=== PATIENT | female | born 1985 | race American Indian/Alaskan Native ===

== ENCOUNTER 2016-06-15 15:54 | Outpatient (CLI) | payer MEDICAID ==
--- NOTE | 2016-06-16 14:00 | Magnetic Resonance Report ---
MRI LUMBAR SPINE WITHOUT CONTRAST: 06/15/16 CLINICAL: Low back pain. TECHNIQUE: Sagittal and axial T1 and T2, and sagittal STIR sequences on a 1.5 Stephanie magnet. FINDINGS: Normal vertebral body height, alignment and disc spaces. Normal marrow signal is normal disc signal. The conus medullaris is normal and terminates at L1. L1-2: Intact. L2-3: Intact. L3-4: Intact. L4-5: Intact. L5-S1: Intact. IMPRESSION: Normal study.
== END 2016-06-15 15:55 | disposition home or self-care (01) ==
LOC: MRI 15:54
PROVIDERS: ATTEND Physical Medicine & Rehabilitation
DX: M47.896 Other spondylosis, lumbar region (principal)
CPT/HCPCS: 72148

== ENCOUNTER 2016-06-17 18:49 | Emergency (ER) | payer MEDICAID ==
[2016-06-17 19:29] VITALS: BP 146/83
--- NOTE | 2016-06-17 20:05 | Emergency Department Report ---
Chief Complaint: Skin/Abscess/Foreign Body Stated Complaint: S/P LEFT ARM SURGERY/BURNING/NUMB Time Seen by Provider: 06/17/16 19:57 - HPI History of Present Illness: 30y/o female complain of had a surgery on saturday. had surgery of the left armpit.pt state she do not know the name of the surgery .pt state she was not suppose to put deodorant on armpit but accident place deodorant and notice edema and red streak moving upward arm.pt state she has post op appointment in the am .denies any pain or discomfort at present . - ROS Review of Systems: per HPI - Exam Vital Signs: Vital Signs 06/17/16 19:21 Temperature 98.8 F Pulse Rate 93 H Respiratory 18 Rate Blood Pressure 146/83 O2 Sat by Pulse 98 Oximetry Physical Exam: GENERAL: The patient is well-developed and well-nourished. Patient is in NAD. HENT: Normocephalic. Atraumatic. Patient has moist mucous membranes. Throat: No erythema, swelling or exudates. Ears:Tympanic membranes pearly loyola ,intact , and free of exudate and erythema . EYES: Extraocular motions are intact, PERRL NECK: Supple. No meningitic signs are noted. There is no adenopathy noted. CHEST/LUNGS: Clear to auscultation bilaterally. No wheezing, rales or rhonchi noted. There is no respiratory distress noted. HEART/CARDIOVASCULAR: Regular rate and rhythm. Normal S1 S2. No murmurs, rubs , clicks, or gallops. ABDOMEN: Abdomen is soft, nontender.. Bowel sounds normoactive. There is no abdominal distention. Negative rebound tenderness. : Deferred. SKIN: rash note upper arm . mild edema noted to the left armpit . no diaphoresis NEURO: The patient is A&Ox3. The patient has no focal neurologic deficits. MUSCULOSKELETAL: There is no tenderness or deformity. There is no limitation range of motion. posture erect.Spine aligned,no deformities. PSYCH: Pt has appropriate mood and affect. MSE screening note: Focused history and physical exam performed. Due to findings the following was ordered: ED Disposition for MSE Condition: Stable
--- NOTE | 2016-06-18 19:11 | ED Elopement Review ---
ED Pt Elopement review - Call Back decision Pt Call Back Decision: Pt to F/U with PMD
== END 2016-06-17 22:45 | disposition left against medical advice (07) ==
LOC: ED 18:49
DX: R60.0 Localized edema (principal); R21 Rash and other nonspecific skin eruption; Z53.21 Procedure and treatment not carried out due to patient leaving prior to being seen by health care provider

== ENCOUNTER 2016-08-29 10:28 | Inpatient (IN) | payer MEDICAID ==
[2016-08-27 13:53] LABS: Hematocrit 35.4 % (30.3-42.9); Hemoglobin 11.3 gm/dl (10.1-14.3); Mean Corpuscular HGB Conc 32 % (30-34); Mean Corpuscular Hemoglobin 27 pg (28-32); Mean Corpuscular Volume 83 fl (79-97); Platelet Count 295 K/mm3 (140-440); Red Blood Count 4.27 M/mm3 (3.65-5.03); Red Cell Distribution Width 16.3 % (13.2-15.2); White Blood Count 4.9 K/mm3 (4.5-11.0)
--- NOTE | 2016-08-27 14:01 | Anesthesia Consultation ---
Anesthesia Consult and Med Hx Date of service: 08/27/16 - Airway Anesthetic Teeth Evaluation: Poor (gaps), Caps ROM Head & Neck: Adequate Mental/Hyoid Distance: Adequate Mallampati Class: Class II Intubation Access Assessment: Probably Good - Pulmonary Exam CTA: Yes - Cardiac Exam Cardiac Exam: RRR - Pre-Operative Health Status ASA Pre-Surgery Classification: ASA2 Proposed Anesthetic Plan: General - Pulmonary Hx Smoking: Yes (CIGARETTES 1/2 PPD x 9 YRS) Hx Asthma: No - Cardiovascular System Hx Hypertension: Yes (only with ) - Central Nervous System Hx Seizures: No CVA: No Hx Back Pain: Yes (severe low back pain) Hx Psychiatric Problems: No - Gastrointestinal Hx Gastroesophageal Reflux Disease: No - Endocrine Hx Insulin Dependent Diabetes: No Hx Non-Insulin Dependent Diabetes: No - Hematic Hx Anemia: Yes - Other Systems Hx Alcohol Use: No Hx Substance Use: No Hx Cancer: No - Additional Comments Anesthesia Medical History Comments: NAC, complained of sore throat / hard to swallow after last GETA. Really bad back pain after surgery
--- NOTE | 2016-08-28 21:54 | History and Physical Report ---
History of Present Illness Date of examination: 08/27/16 Chief complaint: Dysfunctional Uterine Bleeding, Chronic Pelvic Pain History of present illness: Pt is a 30 year old -[place] female who presents for definitive management of dysfunctional uterine bleeding and chronic pelvic pain since February 2015 that have been minimally improved by medical management. The patient has been counseled on multiple occasions about the risk of regret and the possibility of persistence of her pelvic pain or need for further surgery. She acknowledges these risks and desires to proceed with hysterectomy. Past History Past Medical History: hypertension Past Surgical History: other (laparoscopy x 2 ) [employer] History: chlamydia (remote, treated ), herpes, trichomonas (remote, treated ) Family/Genetic History: diabetes, hypertension Social history: single, smoking - Obstetrical History : 2 Para: 1 Hx # Term Pregnancies: 1 Number of Pregnancies: 0 Spontaneous Abortions: 1 Induced : 0 Number of Living Children: 1 Medications and Allergies Allergies Allergy/AdvReac Type Severity Reaction Status Date / Time tramadol Allergy Rash Verified 08/21/16 11:57 Home Medications Medication Instructions Recorded Confirmed Last Taken Type Oxycodone HCl/Acetaminophen 1 each PO Q6HR PRN #30 tablet 09/29/15 08/21/16 06:00 Rx [Percocet 7.5/325 mg] Norgestimate-Ethinyl Estradiol 1 each PO QDAY 11/14/15 08/21/16 06/14/16 History [Tri-Sprintec Tablet] Ibuprofen [Motrin 800 MG tab] 800 mg PO Q8HR PRN #10 tablet 06/15/16 08/21/16 Unknown Rx Active Meds: Active Medications Famotidine (Pepcid) 20 mg PO PREOP NR Stop: 08/29/16 23:02 Lactated Ringer's (Lactated Ringers) 1,000 mls @ 100 mls/hr IV DIRECT ANIKA Cefazolin Sodium (Ancef/Sterile Water 2 Gm/20 Ml) 2 gm in 20 mls @ 80 mls/hr IV PREOP ANIKA PRN Reason: Protocol Midazolam HCl (Versed) 2 mg IV PREOP NR Stop: 08/29/16 23:59 Review of Systems All systems: negative - Vital Signs Vital signs: Vital Signs Temp Pulse Resp BP 98.3 F 80 16 134/84 08/27/16 13:30 08/27/16 13:30 08/27/16 13:30 08/27/16 13:30 Temp Pulse Resp BP Pulse Ox 98.3 F 80 16 134/84 08/27/16 13:30 08/27/16 13:30 08/27/16 13:30 08/27/16 13:30 - Physical Exam Breasts: Positive: deferred Cardiovascular: Regular rate Lungs: Positive: Clear to auscultation Abdomen: Positive: soft Extremities: Positive: normal Results Result Diagrams: 08/27/16 13:35 All other labs normal. Ultrasound: other (07/16/16: Uterus 8.8x3.9x4.3 cm. 1.1x 0.5x0.9 cm fibroid. EMS 3 mm. Right ovary: 2.8x1.6x2.6 cm. Left ovary: 3.5x1.5x2.6 cm. 1.1 cm left ovarian follicle. Small amount of free fluid in cul-de-sac. ) Assessment and Plan A: Chronic Pelvic Pain Dysfunctional Uterine Bleeding Uterine Fibroid Hypertension Tobacco Use P: Proceed with Laparoscopic-assisted vaginal hysterectomy, bilateral salpingectomy, possible bilateral oophorectomy and other indicated procedures.
[~2016-08-29 10:28] MED LIST: LACTATED RINGERS 1,000 ML IV SCH; PEPCID PO NR; VERSED IV NR
[2016-08-29] MEDS ORDERED: ANCEF/STERILE WATER 2 GM/20 ML 2 GM/20 ML SYRINGE IV SCH (12:00)
[2016-08-29] MEDS ORDERED: NORCO 5/325 PO PRN (12:14)
[2016-08-29] MEDS ORDERED: ZOFRAN IV PRN ×3 (12:14→16:17)
--- NOTE | 2016-08-29 12:17 | Anesthesia Day of Surgery ---
Anesthesia Day of Surgery - Day of Surgery Patient Examined: Yes Patient H&P Reviewed: Yes Patient is NPO: Yes
[2016-08-29] MEDS ORDERED: XYLOCAINE MPF 2% ONE ×2 (12:50→13:21)
[2016-08-29] MEDS ORDERED: ZEMURON IV ONE ×2 (12:50→14:46)
[2016-08-29] MEDS ORDERED: SUBLIMAZE ONE ×2 (12:50→14:21)
[2016-08-29] MEDS ORDERED: DIPRIVAN 10 MG/ML IV ONE (12:51)
[2016-08-29] MEDS ORDERED: MARCAINE 0.5% 30 ML INFILTRATI ONE (13:11)
--- NOTE | 2016-08-29 13:31 | Admit Criteria Form ---
Admission Criteria Documentation: AMBULATORY SURGERY EXCEPTION CRITERIA Ambulatory Surgery Exception Criteria ( Place 'X' for any and all applicable criteria): Surgery or procedure performed on ambulatory basis may require inpatient stay for[A] ANY ONE of the following(1)(2)(3)(4)(5)(6)(7)(8)(9): [X] I. A preoperative situation, condition, or finding that warrants inpatient stay as indicated by ANY ONE of the following: [X] a) Inpatient care needed because of severity of a disease or condition rather than the surgery (eg, severe cardiac or respiratory disease, severe infection) (15) (16 ) (17) (18) [] b) Emergent procedure (eg, angioplasty for acute ischemia)(19) [] c) Complex surgical approach or situation as indicated by ANY ONE of the following(3): [] i) Open approach needed instead of usual endoscopic, transcatheter, or other less invasive procedure [] ii) Difficult approach because of previous operation [] iii) Airway monitoring required after open neck procedures(20)(21) [] iv) Large mass requiring unusually extensive dissection [] v) Additional complicating feature requiring inpatient care (eg, drain management)(22(23): [] d) Major surgery in a pt with high anesthetic risk as indicated by ANY ONE of the following (2)(3)(5)(7)(8): [] i) ASA risk class III or higher (severe systemic disease impairing function) [D] [] ii) Advanced age (eg, older than 85 years)(14)(24) [] iii) Symptomatic heart failure(25) [] iv) Symptomatic asthma or COPD(8)(21) [] v) Morbid obesity with hemodynamic or respiratory problems(20)( 21)(26)(27) [] vi) Obstructive sleep apnea(20)(21) [] vii) Former premature infants who are younger than 60 weeks [] viii) High risk for severe postoperative abnormalities (eg, severe postoperative hypocalcemia after parathyroidectomy for severe hyperparathyroidism)(27)( 28) [] ix) Unstable angina(25) [] e) Drug-related risk requiring inpatient stay as indicated by ANY ONE of the following(5)(10)(14)(32)(33) [] i) Procedure requires discontinuing drugs or other therapy (eg , antiarrhythmic medication, antiseizure medication), which necessitates inpatient observation or treatment.(18)(31) [] ii) Major surgery and high risk drug use as indicated by ANY ONE of the following: [] 1) Active abuse of cocaine or similar drug [] 2) Monoamine oxidase inhibitor use [] 3) Other drug identified as posing risk [] f) Inadequate outpatient care situation as indicated by ANY ONE of the following(5)(10)(14)(32)(33) [] i) Patient lives remote from medical facility and procedure has urgent complication potential, and temporary nearby residence cannot be arranged [] ii) Patient will have postprocedure incapacitation and inadequate assistance at home, or alternative level of care cannot be arranged. [] iii) Patient will have long general anesthesia or procedure side effect resolution time, and competent person to stay with patient on first postoperative night at home or alternative level of care cannot be arranged. []iv) Other inadequate outpatient situation that cannot be handled by other means [] II. A perioperative event, condition, or finding that warrants inpatient stay as indicated by ANY ONE of the following (1)(2)(3): [] a) Inadequate physiologic recovery: cardiovascular, respiratory, or hemodynamic status not normal or near preoperative baseline(18) [] b) Hemodynamic instability [] c) Patient not alert with near normal or baseline mental status [] d) Temperature not normal or as expected and not appropriate for outpatient treatment of condition [] e) Ambulatory or appropriate activity level status not yet achieved post procedure [E](34)(35)(36) [] f) Operative site not appropriate (eg, unexpected or excessive drainage or bleeding) [] g) Postoperative effects not resolved or adequately managed (eg, significant pain or vomiting not appropriate for outpatient or next level of care)(10)(12) [] h) Complicating features requiring inpatient care as indicated by ANY ONE of the following(37): [] i) Severe complications of procedure (eg, bowel injury, airway compromise, vascular injury,severe hemorrhage) [] ii) Extensive (eg, dissection far beyond usual scope of procedure ) or prolonged (eg, 120 minutes beyond usual) surgery needed requiring inpatient postoperative care [] iii) Conversion to an open or complex procedure that requires inpatient care (eg, open vs laparoscopic cholecystectomy, abdominal vs vaginal hysterectomy)(38) [] iv) Comorbid condition or test result identified during or post procedure that requires inpatient care (7) [] v) Malignant hyperthermia(30) [] vi) Other complicating feature requiring inpatient care(22)(23) Inpatient stay may be needed until ALL of the following are present (1)(2)(3)(4) (5)(6)(10)(14)(33)(40): []a) Physiologic recovery: cardiovascular, respiratory, and hemodynamic status normal or near preoperative baseline []b) Hemodynamic stability []c) Patient alert, with near normal or baseline mental status []d) Temperature appropriate: patient afebrile or temperature appropriate for outpt treatment of condition []e) Activity level appropriate: ambulatory or appropriate activity level post procedure []f) Operative site appropriate as indicated by ALL of the following: []i) Site dry or with expected drainage []ii) Any blood noted is as expected for procedure. []g) Postoperative effects resolved or managed as indicated by ALL of the following: []i) Pain management appropriate for outpatient (or next level of) care(10) []ii) Minimal nausea and vomiting: if present, successfully treated with oral medication(12) []iii) Headache, dizziness, or drowsiness (if present) are mild. []h) Voiding status acceptable as indicated by ANY ONE of the following: []i) Voiding spontaneously []ii) No voiding but instructions given for follow-up in 6 to 8 hours []iii) Urinary catheter in place, and instructions given for follow-up []i) Complicating features requiring inpatient care manageable at a lower level of care(37) []j) Comorbid conditions manageable at a lower level of care(37) The original [employer] content created by [employer] has been revised. The portions of the content which have been revised are identified through the use of italic text or in bold, and [employer] has neither reviewed nor approved the modified material. All other unmodified content is copyright [employer]. Please see references footnoted in the original [employer] edition 2016 Admission Criteria Met: Yes
[2016-08-29] MEDS ORDERED: DECADRON ONE (13:42)
[2016-08-29] MEDS ORDERED: ZOFRAN ONE (13:49)
[2016-08-29] MEDS ORDERED: DILAUDID ONE (13:49)
[2016-08-29] MEDS ORDERED: NEOSTIGMINE ONE (13:49)
[2016-08-29] MEDS ORDERED: ROBINUL ONE (13:50)
[2016-08-29] MEDS ORDERED: LACTATED RINGERS 1,000 ML ONE (14:45)
[2016-08-29] MEDS ORDERED: MARCAINE 0.5% INFILTRATI ONE ×2 (15:25)
[2016-08-29] MEDS ORDERED: NACL 0.9% IR ONE (15:25)
[2016-08-29] MEDS ORDERED: TORADOL ONE (15:28)
[2016-08-29] MEDS: DILAUDID IV PRN ×5 (16:09→19:50)
--- NOTE | 2016-08-29 16:16 | Operative Report ---
Operative Report Operative Report: Date of procedure: August 29, 2016 Preoperative Diagnosis: 1) Chronic Pelvic Pain 2) Dysfunctional Uterine Bleeding Postoperative diagnosis: Same 3) Uterine Prolapse Surgeon: Zehra Keith MD Ems Driver: Aggie Shannon MD Anesthesia: GETA Procedure: Laparoscopic-assisted vaginal hysterectomy, bilateral salpingectomy Findings: 1) Small retroverted uterus that sounded to 8 cm 2) Normal-appearing ovaries and fallopian tubes EBL: 150 mL Urine clear at the end of the procedure Specimen: Uterus, cervix and bilateral fallopian tubes to pathology Complications: None. Counts correct x 3 Drains: Zamora to gravity Disposition: Stable to PACU Indication for procedure: Pt is a 30 year old -[place] female who presents for definitive management of chronic pelvic pain and dysfunctional uterine bleeding that has failed medical management. Operation in detail: After the risks, benefits, alternatives and complications were explained to the patient, she gave informed consent for the procedure. She was subsequently taken to the operating room with her IV noted to be running well and placed in the dorsal supine position. SCDs were noted to be in place and functioning. General anesthesia was then induced without difficulty. The patient was then placed in the dorsal lithotomy position with Altaf stirrups. Exam under anesthesia revealed a small retroverted mobile uterus. The patient was then prepped and draped in a normal sterile fashion. A timeout was then performed. A zamora catheter was placed and the bladder was emptied. A bivalve speculum was placed into the vagina. Second degree uterine prolapse was noted. A single- tooth tenaculum was then placed on the anterior lip of the cervix for traction. The uterus was sounded to 8 cm. Stay sutures of 0-Vicryl were placed on either side of the cervix at the 3 o clock and 9 o clock positions. A large V- Care uterine manipulator was introduced without difficulty. A glove filled with a lap was placed into the vagina. The surgeon's gloves were changed. A small horizontal incision was made with the knife 4 cm above the umbilicus. Two towel clamps were applied to the periumbilical skin for manual elevation of the abdomen. A Veress needle was introduced into the peritoneal cavity at a straight angle without difficulty. A saline drop test was performed to confirm intraperitoneal placement. Pneumoperitoneum was established with carbon dioxide gas to a pressure of 15 mm Hg. A 10 mm trocar was inserted into the abdomen under direct visualization. Intraabominal placement was confirmed with the laparoscope. An intraabdominal survey revealed pelvic anatomy was as noted above. Two 10 mm trocars were inserted in the bilateral lower quadrants 8 cm from the midline under direct laparoscopic visualization. Trendelenberg position was used to facilitate movement of the bowel and omentum out of the pelvis. The uterus was elevated out of the pelvis with a uterine manipulator. Using a 10 mm Ligasure device, the fallopian tubes were bilaterally excised. Next, the broad, utero-ovarian and round ligaments on the right side were sequentially transected with the Ligasure device until the uterine artery was exposed. The same procedure was repeated on the left side. The vesico-uterine peritoneum was opened with monopolar scissors and the bladder was dissected off the lower uterine segment and upper vagina. With the V-Care pushing into the pelvis, the cervico-vaginal junction was delineated by the colpotomy ring, which was apparent through the tissue. The vagina was entered posteriorly with the monopolar scissors and incised circumferentially along the cervico-vaginal junction. The uterus was then delivered through the vagina and sent to pathology. Attention was then turned to the vaginal portion of the case. The patient was placed in high dorsal lithotomy position. The vaginal cuff was grasped with Allis clamps then reapproximated with running locked 0-Vicryl suture. An additional figure of eight was placed at the center of the incision for hemostasis. Hemostasis was noted. A moist vaginal pack was placed. The surgeon's gloves were changed. The pnuemoperitoneum was reestablished and the pelvis was inspected with no active bleeding noted. Herminia AH was then sprayed over all pedicles. All instruments were removed from the abdomen after a Valsalva maneuver was performed. The fascial defects of the three trocar sites were closed with a Erick-Hernández device using 0-Vicryl. All three skin incisions were injected with 0.5% Marcaine then reapproximated with 4-0 Vicryl in a subcuticular fashion. The incisions were then covered with steri-strips, telfa and tegaderm dressings. At this time the procedure was ended. The patient was returned to the dorsal supine position and extubated without difficulty. She was subsequently taken to the PACU in stable condition. All counts were correct x 3.
--- NOTE | 2016-08-29 16:16 | Post Operative Note ---
Date of procedure: 08/29/16 Pre-op diagnosis: 1) Dysfunctional Uterine Bleeding 2) Pelvic Pain Post-op diagnosis: same Findings: 1) Small retroverted uterus that sounded to 8 cm 2) Normal-appearing ovaries and fallopian tubes Procedure: Laparoscopic-Assisted Vaginal Hysterectomy Bilateral Salpingectomy Anesthesia: GETA Surgeon: JAIRO BROWN Director Commercial Sales: JEREMY DREW Estimated blood loss: other (150 mL) Pathology: list (uterus, cervix, bilateral fallopian tubes) Specimen disposition: to lab Condition: stable Disposition: PACU
[2016-08-29] MEDS ORDERED: BENADRYL IV PRN (16:17)
[2016-08-29] MEDS ORDERED: BENADRYL PO PRN (16:17)
[2016-08-29] MEDS ORDERED: TYLENOL PO PRN (16:17)
[2016-08-29] MEDS ORDERED: NARCAN 0.4 MG/1 ML IV PRN ×2 (16:17)
[2016-08-29] MEDS ORDERED: VERSED IV PRN (16:28)
[2016-08-29] MEDS ORDERED: MORPHINE PCA 30MG/30ML IV SCH (17:00)
[2016-08-29] MEDS ORDERED: D5W/0.45% NACL/KCL 20 MEQ 20 MEQ/1,000 ML BAG IV SCH (17:00)
[2016-08-29] MEDS ORDERED: DILAUDID IV ONE (18:00)
--- NOTE | 2016-08-29 18:37 | Post Anesthesia Evaluation ---
- Post Anesthesia Evaluation Patient Participated: Yes Airway Patent: Yes Stable Respiratory Function: Yes Nausea/Vomiting: No Temp > 96.8F: Yes Pain Manageable: Yes Adequeate Hydration: Yes Anesthesia Complications: No
[2016-08-29] MEDS: ANCEF/NS 1 GM/50 ML 1 GM/50 ML BAG IV SCH (20:00)
[2016-08-29] MEDS: TORADOL IV SCH (21:20)
[2016-08-29] MEDS: MORPHINE IV PRN (22:50)
[2016-08-29] MEDS: PERCOCET 5/325 PO PRN (23:40)
[2016-08-30] MEDS: MILK OF MAGNESIA PO PRN ×2 (00:45→08:50)
[2016-08-30] MEDS: ANCEF/NS 1 GM/50 ML 1 GM/50 ML BAG IV SCH (03:40)
[2016-08-30] MEDS: TORADOL IV SCH ×4 (03:40→23:08)
[2016-08-30] MEDS: PERCOCET 5/325 PO PRN ×5 (03:40→23:10)
[2016-08-30] MEDS: MORPHINE IV PRN ×5 (05:15→21:51)
--- NOTE | 2016-08-30 09:08 | Progress Note ---
Assessment and Plan A: POD#1 s/p LAVH/bilateral salpingectomy, chronic back pain, poor pain control P: Attempt to better control pain with Percocet 10's. Routine postoperative care. Subjective - Subjective Date of service: 08/30/16 Principal diagnosis: s/p LAVH/Bilateral salpingectomy Interval history: Pt reports poor pain control. She now reveals that she is taking Percocet 10/ 325mg pills for her chronic back pain. Patient reports: appetite normal, pain poorly controlled, ambulating normally ( minimally ), no voiding normally (zamora just removed ), no flatus, no bowel movement Objective - Vital Signs Latest vital signs: Vital Signs Temp Pulse Pulse Resp Resp BP BP 08/30/16 06:20 88 18 124/63 08/30/16 05:15 18 08/30/16 04:00 98.6 F 16 141/74 08/30/16 03:40 18 08/30/16 00:00 98.6 F 88 18 161/96 08/29/16 23:40 18 08/29/16 23:20 18 08/29/16 22:50 18 08/29/16 21:50 20 08/29/16 21:20 20 08/29/16 20:00 22 08/29/16 19:50 22 22 08/29/16 19:30 98.6 F 77 16 140/80 08/29/16 18:05 98.2 F 72 20 137/76 08/29/16 17:30 98.2 F 78 17 143/90 08/29/16 17:15 79 18 156/92 08/29/16 17:00 75 19 156/87 08/29/16 16:45 76 18 158/90 08/29/16 16:30 75 22 154/92 08/29/16 16:15 76 22 156/96 08/29/16 16:09 74 17 148/85 08/29/16 16:04 82 15 155/95 08/29/16 15:59 97.3 F L 84 14 135/90 08/29/16 11:59 98.6 F 92 H 20 147/90 08/29/16 10:45 98.6 F 92 H 20 147/90 Pulse Ox 08/30/16 06:20 08/30/16 05:15 08/30/16 04:00 08/30/16 03:40 08/30/16 00:00 08/29/16 23:40 08/29/16 23:20 08/29/16 22:50 08/29/16 21:50 08/29/16 21:20 08/29/16 20:00 08/29/16 19:50 08/29/16 19:30 08/29/16 18:05 08/29/16 17:30 100 08/29/16 17:15 100 08/29/16 17:00 100 08/29/16 16:45 100 08/29/16 16:30 100 08/29/16 16:15 100 08/29/16 16:09 100 08/29/16 16:04 100 08/29/16 15:59 100 08/29/16 11:59 100 08/29/16 10:45 100 Intake and Output 08/29/16 08/30/16 08/30/16 22:59 06:59 14:59 Intake Total 420 590 Output Total 780 900 Balance -360 -310 Intake: IV 50 ANCEF/NS 1 GM/50 ML 1 gm 50 In 50 ml @ 100 mls/hr IV Q8H [facility] Rx#:[id number] Oral 180 Intake, Free Water 240 540 Output: Urine 780 900 Indwelling Catheter 600 900 Uretheral (Zamora) 180 Other: Total, Intake Amount 180 Total, Output Amount 600 900 Voiding Method Indwelling Catheter - Exam Breasts: Present: deferred Cardiovascular: Present: Regular rate Lungs: Present: Clear to auscultation Abdomen: Present: soft, abnormal bowel sounds Extremities: Present: normal Incision: Present: dressed
[2016-08-30 09:11] LABS: Hematocrit 31.5 % (30.3-42.9)
[2016-08-30 09:30] LABS: Anion Gap 17 mmol/L; Blood Urea Nitrogen 5 mg/dL (7-17); Calcium 8.7 mg/dL (8.4-10.2); Carbon Dioxide 24 mmol/L (22-30); Chloride 101.3 mmol/L (98-107); Glucose 103 mg/dL (65-100); Potassium 3.9 mmol/L (3.6-5.0); Sodium 138 mmol/L (137-145)
[2016-08-30] MEDS ORDERED: NORCO 10/325 PO PRN (09:30)
[2016-08-30] MEDS ORDERED: MILK OF MAGNESIA PO SCH (11:00)
[2016-08-31] MEDS: PERCOCET 5/325 PO PRN (05:01)
[2016-08-31] MEDS: TORADOL IV SCH (05:01)
[2016-08-31] MEDS: MORPHINE IV PRN (06:16)
[2016-08-31] MEDS ORDERED: NORCO 10/325 PO PRN (10:00)
--- NOTE | 2016-08-31 11:25 | Progress Note ---
Assessment and Plan A: POD#2 s/p LAVH/bilateral salpingectomy, chronic back pain P: Routine postoperative care. Discharge home with follow up in two weeks. Subjective - Subjective Date of service: 08/31/16 Principal diagnosis: s/p LAVH/Bilateral salpingectomy Interval history: Pt pain improved and she is asking to go home. Pt has had two bowel movements. Patient reports: appetite normal, voiding normally, flatus, bowel movement, ambulating normally, no nauseated Objective - Vital Signs Latest vital signs: Vital Signs Temp Pulse Resp BP 08/31/16 08:50 98.6 F 84 20 140/82 08/31/16 05:00 98.6 F 91 H 20 159/98 08/31/16 00:40 98.5 F 78 20 134/85 08/30/16 20:55 99.7 F H 82 20 143/94 08/30/16 16:25 99.3 F 87 18 150/92 08/30/16 12:15 98.3 F 88 18 154/97 Intake and Output 08/30/16 08/31/16 08/31/16 22:59 06:59 14:59 Intake Total 50 360 Output Total 300 Balance -250 360 Intake: Oral 25 Intake, Free Water 25 240 Tube Feeding 120 Output: Urine 300 Indwelling Catheter 300 Other: Total, Intake Amount 25 120 Total, Output Amount 300 Voiding Method Toilet # Voids Void 1 # Bowel Movements 100 - Exam Breasts: Present: deferred Cardiovascular: Present: Regular rate Lungs: Present: Clear to auscultation Abdomen: Present: soft, normal bowel sounds Extremities: Present: normal Incision: Present: dressed
--- NOTE | 2016-08-31 11:28 | Discharge Summary ---
Providers - Providers Date of Admission: 08/29/16 16:17 Date of discharge: 08/31/16 Attending physician: JAIRO BROWN Primary care physician: PEDIATRIC ORTHODONTIST Hospitalization Reason for admission: other (hysterectomy ) Procedure details: LAVH/bilateral salpingectomy; please see operative note Incision: dressed Hospital course: Patient underwent laparoscopic assisted vaginal hysterectomy with bilateral salpingectomy which she tolerated well. Her postoperative course was uncomplicated and she met discharge criteria on postoperative day #2. She will follow-up in the office in 2 weeks. Condition at discharge: Stable Disposition: DISCHARGED TO HOME OR SELFCARE - Discharge Diagnoses (1) Dysfunctional uterine bleeding Status: Acute (2) Chronic narcotic dependence Status: Acute (3) S/P laparoscopic hysterectomy Status: Acute (4) Chronic back pain Status: Acute Qualifiers: Back pain location: back pain in unspecified location Back pain laterality : unspecified Sciatica presence: S Sciatica laterality: S Qualified Code(s ): M54.9 - Dorsalgia, unspecified; G89.29 - Other chronic pain (5) Pelvic pain Status: Acute (6) Tobacco abuse Status: Acute Plan - Discharge Medications Prescriptions: Docusate Sodium [Colace] 100 mg PO BID PRN #60 capsule PRN Reason: Constipation Ibuprofen [Motrin] 800 mg PO Q8HR PRN #40 tablet PRN Reason: Pain Oxycodone HCl/Acetaminophen [Percocet 10/325 mg] 1 each PO Q6HR PRN #30 tablet PRN Reason: Pain - Provider Discharge Summary Activity: routine, no sex for 6 weeks, no heavy lifting 4 weeks, no strenuous exercise Diet: routine Instructions: routine Additional instructions: [] Smoking cessation referral if applicable(refer to patient education folder for contact #) [] Refer to [facility] Booklet Call your doctor immediately for: * Fever > 100.5 * Heavy vaginal bleeding ( >1 pad per hour) * Severe persistent headache * Shortness of breath * Reddened, hot, painful area to leg or breast * Drainage or odor from incision. * Keep incision clean and dry at all times and follow doctor's instructions regarding bathing/showering - Follow up plan Follow up: DEX TREVIÑO MD [Primary Care Provider] - 7 Days JAIRO BROWN MD [Staff Physician] - 09/12/16 (incision check )
[2016-08-31 12:51] VITALS: BP 140/72
== END 2016-08-31 13:00 | disposition home or self-care (01) | DRG 742 ==
LOC: OR 10:28 → EDSTATUS 13:30 → OB 16:17
PROVIDERS: ADMIT Obstetrics & Gynecology; ATTEND Obstetrics & Gynecology
PROC: 0UT9FZZ Resection of Uterus, Via Natural or Artificial Opening With Percutaneous Endoscopic Assistance (ICD-10-PCS; principal; 2016-08-29)
PROC: 0UT7FZZ Resection of Bilateral Fallopian Tubes, Via Natural or Artificial Opening With Percutaneous Endoscopic Assistance (ICD-10-PCS; 2016-08-29)
PROC: 0UTC7ZZ Resection of Cervix, Via Natural or Artificial Opening (ICD-10-PCS; 2016-08-29)
DX: N93.8 Other specified abnormal uterine and vaginal bleeding (principal); F11.20 Opioid dependence, uncomplicated; D25.9 Leiomyoma of uterus, unspecified; I10 Essential (primary) hypertension; F17.210 Nicotine dependence, cigarettes, uncomplicated; D64.9 Anemia, unspecified; Z83.3 Family history of diabetes mellitus; Z82.49 Family history of ischemic heart disease and other diseases of the circulatory system; Z88.8 Allergy status to other drugs, medicaments and biological substances
CPT/HCPCS: 36415; 80048; 84703; 85014; 85018; 85027; 86850; 86900; 86901; 88307; J0690; J1100; J1170; J1885; J2250; J2270; J2405; J2704; J2710; J3010; J7120

== ENCOUNTER 2017-06-18 10:30 | Day surgery (SDC) | payer MEDICAID ==
[~2017-06-18 10:30] MED LIST changes: +ANCEF/STERILE WATER 2 GM/20 ML IV NR; +FLAGYL 500 MG/100 ML 500 MG/100 ML BAG IV NR; +FLAGYL/NS 1000 MG-200 ML 500 MG in VIAFLEX EMPTY CONTAINER 1 ML IV ONE; -LACTATED RINGERS 1,000 ML IV SCH; -PEPCID PO NR; -VERSED IV NR
--- NOTE | 2017-06-18 11:07 | Anesthesia Day of Surgery ---
Anesthesia Day of Surgery - Day of Surgery Patient Examined: Yes Patient H&P Reviewed: Yes Patient is NPO: Yes
--- NOTE | 2017-06-18 11:07 | Anesthesia Consultation ---
Anesthesia Consult and Med Hx Date of service: 06/18/17 - Airway Anesthetic Teeth Evaluation: Good ROM Head & Neck: Adequate Mental/Hyoid Distance: Adequate Mallampati Class: Class II Intubation Access Assessment: Probably Good - Pulmonary Exam CTA: Yes - Cardiac Exam Cardiac Exam: RRR - Pre-Operative Health Status ASA Pre-Surgery Classification: ASA2 Proposed Anesthetic Plan: General - Pulmonary Hx Smoking: Yes (FOR 11-12YS, QUIT 01/2017) Hx Asthma: No COPD: No Hx Pneumonia: No - Cardiovascular System Hx Hypertension: Yes (only with ) - Central Nervous System Hx Seizures: No CVA: No Hx Back Pain: Yes (left leg pain with walking) Hx Psychiatric Problems: No - Gastrointestinal Hx Gastroesophageal Reflux Disease: No - Endocrine Hx End Stage Renal Disease: No Hx Insulin Dependent Diabetes: No Hx Non-Insulin Dependent Diabetes: No - Hematic Hx Anemia: Yes - Other Systems Hx Alcohol Use: No Hx Substance Use: No Hx Cancer: No Hx Obesity: No
[2017-06-18] MEDS ORDERED: NACL BACTERIOSTATIC INFILTRATI ONE (11:26)
[2017-06-18] MEDS ORDERED: DIPRIVAN 10 MG/ML IV ONE (11:42)
[2017-06-18] MEDS ORDERED: SUBLIMAZE ONE (11:42)
[2017-06-18] MEDS ORDERED: XYLOCAINE MPF 2% ONE (11:44)
[2017-06-18] MEDS ORDERED: ZEMURON IV ONE (11:45)
[2017-06-18] MEDS ORDERED: MARCAINE 0.25% INFILTRATI ONE ×4 (11:53→14:00)
[2017-06-18] MEDS ORDERED: PEPCID PO NR (12:00)
[2017-06-18] MEDS ORDERED: LACTATED RINGERS 1,000 ML IV SCH (12:00)
[2017-06-18] MEDS ORDERED: VERSED IV NR (12:00)
[2017-06-18] MEDS ORDERED: ZOFRAN ONE (14:11)
[2017-06-18] MEDS ORDERED: ROBINUL ONE (14:11)
[2017-06-18] MEDS ORDERED: DECADRON ONE (14:11)
[2017-06-18] MEDS ORDERED: NEOSTIGMINE ONE (14:11)
[2017-06-18] MEDS ORDERED: DILAUDID ONE (14:24)
[2017-06-18] MEDS ORDERED: PROAIR IH ONE (14:30)
--- NOTE | 2017-06-18 14:34 | Post Operative Note ---
Pre-op diagnosis: Bleeding internal hemorrhoids Post-op diagnosis: same Findings: Grade 2& 3 internal hemorrhoids Procedure: Doppler guided hemorrhoidal ligation Anesthesia: GETA Surgeon: SOLANGE GARCIA Estimated blood loss: minimal Pathology: none Condition: stable Disposition: PACU
--- NOTE | 2017-06-18 14:38 | Discharge Summary ---
Short Stay Discharge Plan Diet: regular Wound: change dressing (tomorrow a.m: start Sitzs baths TID ) Follow up with: TRENA MODI MD [Primary Care Provider] - 7 Days Prescriptions: Ketorolac [Toradol] 10 mg PO Q6H PRN #20 tablet PRN Reason: Pain oxyCODONE /ACETAMINOPHEN [Percocet 5/325] 1 tab PO Q4HR PRN #30 tab PRN Reason: Pain , Severe (7-10)
[2017-06-18] MEDS ORDERED: DILAUDID IM PRN (14:52)
[2017-06-18] MEDS ORDERED: PERCOCET 5/325 PO ONE (14:58)
--- NOTE | 2017-06-18 16:19 | Post Anesthesia Evaluation ---
- Post Anesthesia Evaluation Patient Participated: Yes Airway Patent: Yes Stable Respiratory Function: Yes Nausea/Vomiting: No Temp > 96.8F: Yes Pain Manageable: Yes Adequeate Hydration: Yes Anesthesia Complications: No Block Receding Appropriately: Not Applicable Patient on Ventilator: No
[2017-06-18 17:22] VITALS: BP 153/90
--- NOTE | 2017-06-18 21:50 | Operative Report ---
PREOPERATIVE DIAGNOSIS: Bleeding internal hemorrhoids. POSTOPERATIVE DIAGNOSIS: Bleeding internal hemorrhoids, grade 2 and 3. OPERATIVE PROCEDURE: Examination under anesthesia and Doppler guided multiple ligations of hemorrhoids. ANESTHESIA: General endotracheal. SPECIMENS: None. ESTIMATED BLOOD LOSS: Minimal. INDICATIONS: A 31-year-old female patient has been having bleeding internal hemorrhoids for the past several years refractory to medical treatment. She is brought in for the above procedure. FINDINGS: Grade 2 and 3 internal hemorrhoids at 3, 7 and 11 o'clock position and minor hemorrhoids in the interval areas. There was no thrombosis. No fissure or fistula evident. Limited visualization of the distal rectal mucosa appeared normal. DESCRIPTION OF PROCEDURE: After satisfactory induction of general endotracheal anesthesia, the patient was on the stretcher. The patient was transferred to the operating table in prone position and jackknife modification with appropriate protected devices. Operative area prepped and draped. Coccygeal block with 20 mL of Marcaine was given. The endoscope with a Doppler attachment was inserted into the anal canal and above findings were noted. A Doppler signals were easily obtained at 1, 3, 5, 7, 9, and 11 o'clock position. After obtaining signals in each location, a transfixing suture of 2-0 Vicryl was made and tied. The Doppler portion was removed and the suture was run inferiorly in a continuous fashion up to the dentate line and it was ligated to the suture placed above. The same method was repeated at the other 5 locations. No active bleeding was noted. Minimal bleeding controlled by pressure. Gelfoam impregnated with ____ jelly was placed at the anal verge and dry occlusive dressings were placed. She tolerated the procedure well. JOB# [id number] MNN/NTS
== END 2017-06-18 16:59 | disposition home or self-care (01) ==
LOC: OR 10:30
PROVIDERS: ATTEND Surgery
DX: K64.1 Second degree hemorrhoids (principal); K64.2 Third degree hemorrhoids; I10 Essential (primary) hypertension; Z98.890 Other specified postprocedural states; Z88.8 Allergy status to other drugs, medicaments and biological substances; Z87.891 Personal history of nicotine dependence; Z90.710 Acquired absence of both cervix and uterus
CPT/HCPCS: 46946; J0690; J1100; J1170; J2250; J2405; J2704; J2710; J3010; J7120

== ENCOUNTER 2019-04-18 18:29 | Emergency (ER) | payer MEDICAID ==
[2019-04-18 18:57] VITALS: BP 122/77
--- NOTE | 2019-04-18 20:03 | Emergency Department Report ---
Chief Complaint: Extremity Injury, Upper Stated Complaint: HAND PAIN Time Seen by Provider: 04/18/19 19:55 - HPI History of Present Illness: Mrs. De Santiago presents with 1 year of bilateral hand pain involving the first and third digits of both hands. Recently diagnosed at urgent care clinic. Referred to orthopedic surgeon in [facility]. That distance too for her to travel. She is currently taking Diclofenac 75 mg tab prescribed by the urgent care practitioner. I performed medical screening exam. Today no evidence of acute emergent condition. Her extremities are neurovascularly intact. Referred to our orthopedist surgeon which is much closer for her to travel. Medical screen exam performed and completed. - Exam Vital Signs: Vital Signs 04/18/19 18:54 Temperature 99.1 F Pulse Rate 93 H Respiratory 18 Rate Blood Pressure 122/77 O2 Sat by Pulse 97 Oximetry MSE screening note: Focused history and physical exam performed. Due to findings the following was ordered: ED Disposition for MSE Clinical Impression: Bilateral carpal tunnel syndrome Disposition: Z-07 MED SCREENING EXAM-LEFT Condition: Stable Instructions: Carpal Tunnel Syndrome (ED) Referrals: TAQUERIA REESE MD [Staff Physician] - 3-5 Days Forms: Work/School Release Form(ED)
== END 2019-04-18 21:00 | disposition left against medical advice (07) ==
LOC: ED 18:29
DX: G56.03 Carpal tunnel syndrome, bilateral upper limbs (principal)
CPT/HCPCS: 99282

== ENCOUNTER 2019-07-17 11:40 | Outpatient (CLI) | payer MEDICAID ==
--- NOTE | 2019-07-17 12:48 | Magnetic Resonance Report ---
MRI RIGHT KNEE WITHOUT CONTRAST INDICATION: M25.551 PAIN IN RIGHT KNEE. COMPARISON: None available. TECHNIQUE: Multisequence, multiplanar images were obtained. FINDINGS: ACL: Normal. PCL: Normal. DISTAL QUADRICEPS TENDON: Normal. PATELLAR TENDON: Normal. MEDIAL MENISCUS: Normal. LATERAL MENISCUS: Normal. POSTEROLATERAL CORNER: Normal. MCL: Normal. LCL: Normal. DISTAL BICEPS FEMORIS TENDON: Normal. POPLITEUS TENDON: Normal. DISTAL IT BAND: Normal. ARTICULAR CARTILAGE: No chondrosis or articular cartilage defect. JOINT SPACE: No significant joint effusion or synovitis. No popliteal cyst. INTRA-ARTICULAR BODIES: None. BONES: No bone marrow edema. No fracture. No osseous lesion. SOFT TISSUES: No acute findings. ADDITIONAL FINDINGS: None. IMPRESSION: 1. No acute MR abnormality of the right knee. Signer Name: Rivera Arita MD Signed: 07/17/2019 12:43 PM Workstation Name: [id number]
== END 2019-07-17 11:41 | disposition home or self-care (01) ==
LOC: MRI 11:40
PROVIDERS: ATTEND Orthopaedic Surgery
DX: M25.561 Pain in right knee (principal)
CPT/HCPCS: 73721

== ENCOUNTER 2020-04-04 18:29 | Emergency (ER) | payer MEDICAID | END 2020-04-04 20:50 | LOC: ED 18:29 | DX: M25.631 Stiffness of right wrist, not elsewhere classified (principal); Z53.21 Procedure and treatment not carried out due to patient leaving prior to being seen by health care provider ==